=== PATIENT | male | born 1950 | race Two or more races ===

== ENCOUNTER → 2018-06-02 | Outpatient (CLI) | payer MEDICARE, MEDICAID | END | disposition home or self-care (01) | LOC: Rad HDHVI 11:02 | PROVIDERS: ATTEND Internal Medicine Cardiovascular Disease | DX: I10 Essential (primary) hypertension (principal); R00.2 Palpitations; R06.02 Shortness of breath | CPT/HCPCS: 93306 ==

== ENCOUNTER → 2018-06-07 | Outpatient (CLI) | payer MEDICARE, MEDICAID ==
[~2018-06-07] VITALS: Ht 170.2 cm; Wt 127.0 kg
[~2018-06-07] MED LIST: ADENOSINE 107 MG in GIVE UN-DILUTED 0 ML IV ONE; ADENOSINE 90 MG/30 ML INJ IV ONE
[2018-06-07 15:59] LABS: Albumin 3.3 g/dL (3.4-5.0); Calcium 8.6 mg/dL (8.5-10.1); Potassium 3.7 mmol/L (3.5-5.1)
[2018-06-07 16:02] LABS: Bilirubin, Total 0.5 mg/dL (0.2-1.0); Total Protein 7.5 g/dL (6.4-8.2)
[2018-06-07 16:38] LABS: Basophils # (auto) 0.1 uL; Basophils % (auto) 0.7 % (0.0-2.0); Eosinophils # (auto) 0.2 uL; Eosinophils % (auto) 1.9 % (0.0-7.0); Hematocrit 47.6 % (41.0-53.0); Hemoglobin 15.9 g/dL (13.5-17.5); Lymphocytes % (auto) 23.9 % (10.0-50.0); Mean Corpuscular Hemoglobin 27.7 pg (28.0-32.0); Mean Corpuscular Hgb Conc. 33.4 g/dL (32.0-36.0); Monocytes # (auto) 0.7 uL; Monocytes % (auto) 7.8 % (0.0-12.0); Neutrophils # (auto) 5.5 uL; Neutrophils % (auto) 65.7 % (37.0-80.0); Nucleated Red Blood Cells % 1.2 %; Platelet Count (auto) 268 10^3/uL (140-450); Red Blood Cells 5.73 10^6/uL (4.5-5.90); Red Cell Distribution Width 14.4 % (11.8-14.3); White Blood Cell 8.4 10^3/uL (4.4-10.8)
== END | disposition home or self-care (01) ==
LOC: Rad HDHVI 09:52
PROVIDERS: ATTEND Internal Medicine Cardiovascular Disease
DX: D64.9 Anemia, unspecified (principal); E03.9 Hypothyroidism, unspecified; I10 Essential (primary) hypertension; E11.65 Type 2 diabetes mellitus with hyperglycemia
CPT/HCPCS: 36415; 78452; 80053; 83036; 84439; 84443; 85025; 93005; 96374; 96375; A9500; J0153

== ENCOUNTER → 2018-06-28 | Outpatient (CLI) | payer MEDICARE, MEDICAID ==
[2018-06-28 11:50] VITALS: BP 148/84
[2018-06-28 12:20] VITALS: BP 150/86
[2018-06-28 16:25] LABS: Basophils # (auto) 0 uL; Basophils % (auto) 0.5 % (0.0-2.0); Eosinophils # (auto) 0.1 uL; Eosinophils % (auto) 1.4 % (0.0-7.0); Hemoglobin 16.2 g/dL (13.5-17.5); Lymphocytes # (auto) 1.4 uL; Lymphocytes % (auto) 19.2 % (10.0-50.0); Mean Corpuscular Hemoglobin 28.8 pg (28.0-32.0); Mean Corpuscular Hgb Conc. 34.5 g/dL (32.0-36.0); Mean Corpuscular Volume 83.4 fL (80.0-100.0); Monocytes # (auto) 0.5 uL; Monocytes % (auto) 7.6 % (0.0-12.0); Neutrophils # (auto) 5.1 uL; Neutrophils % (auto) 71.3 % (37.0-80.0); Nucleated Red Blood Cells % 0.4 %; Platelet Count (auto) 286 10^3/uL (140-450); Red Blood Cells 5.64 10^6/uL (4.5-5.90); Red Cell Distribution Width 14.9 % (11.8-14.3); White Blood Cell 7.1 10^3/uL (4.4-10.8)
[2018-06-28 16:39] LABS: INR 0.92 (0.9-1.15); Partial Thromboplastin Time 29.8 sec (23.78-33.04); Prothrombin Time 9.9 sec (9.27-12.13)
[2018-06-28 16:40] LABS: BUN/Creatinine Ratio 16.6; Potassium 3.9 mmol/L (3.5-5.1)
== END | disposition home or self-care (01) ==
LOC: Rad HDHVI 11:49
PROVIDERS: ATTEND Internal Medicine Cardiovascular Disease
DX: Z01.818 Encounter for other preprocedural examination (principal); D64.9 Anemia, unspecified; R79.1 Abnormal coagulation profile; I10 Essential (primary) hypertension; R94.31 Abnormal electrocardiogram [ECG] [EKG]
CPT/HCPCS: 36415; 80048; 85025; 85610; 85730; 93005; G0463

== ENCOUNTER 2018-07-01 10:27 | Day surgery (SDC) | payer MEDICARE, MEDICAID ==
[~2018-07-01] VITALS: Ht 170.2 cm; Wt 122.5 kg
[2018-07-01] MEDS ORDERED: HEPARIN IN NS 1000Units/500mL 0 ML ONE (10:53)
[2018-07-01] MEDS ORDERED: LIDOCAINE 2%HCL (LOCAL ANESTH.) INJ 20ML MDV ONE (10:53)
[2018-07-01] MEDS ORDERED: IOHEXOL 350 MG/ML 100ML IJ ONE (10:53)
[2018-07-01] MEDS ORDERED: MIDAZOLAM HCL 1MG/1ML-2 ML VIAL ONE (12:09)
[2018-07-01] MEDS ORDERED: fentaNYL CITRATE 100 MCG/2 ML VL ONE (12:09)
[2018-07-01] MEDS ORDERED: ANGIOMAX 250 MG VIAL IV ONE (12:09)
[2018-07-01] MEDS ORDERED: SODIUM CHL 0.9% 0 ML ONE (12:10)
[2018-07-01] MEDS ORDERED: AMLO5TAB13 PO (13:35)
[2018-07-01] MEDS ORDERED: ATOR20TA50 PO (13:36)
[2018-07-01] MEDS ORDERED: CETI1TAB36 PO (13:49)
[2018-07-01] MEDS ORDERED: LOSA-49 PO (13:55)
[2018-07-01] MEDS ORDERED: DICL50TA4 PO (13:55)
[2018-07-01] MEDS ORDERED: CHLO50TA PO (13:55)
[2018-07-01] MEDS ORDERED: ESCI10TA53 PO (13:55)
[2018-07-01] MEDS ORDERED: INSU75IN2 SC (13:55)
[2018-07-01] MEDS ORDERED: GABA100C9 PO (13:55)
[2018-07-01] MEDS ORDERED: OMEP20TA PO (13:55)
[2018-07-01] MEDS ORDERED: CLOPIDOGREL 300 MG TAB PO ONE (14:00)
== END 2018-07-01 15:10 | disposition home or self-care (01) ==
LOC: CATH 10:27
PROVIDERS: ATTEND Internal Medicine Cardiovascular Disease
DX: I25.10 Atherosclerotic heart disease of native coronary artery without angina pectoris (principal); R94.39 Abnormal result of other cardiovascular function study; I10 Essential (primary) hypertension; E11.9 Type 2 diabetes mellitus without complications; E66.9 Obesity, unspecified; J44.9 Chronic obstructive pulmonary disease, unspecified; E78.5 Hyperlipidemia, unspecified; Z95.5 Presence of coronary angioplasty implant and graft; Z82.49 Family history of ischemic heart disease and other diseases of the circulatory system
CPT/HCPCS: 93460; 99152; 99153; A6257; C1751; C1760; C1894; J1644; J2250; J3010; J7030; Q9967

== ENCOUNTER → 2018-08-02 | Outpatient (CLI) | payer MEDICARE, MEDICAID ==
[~2018-08-02] VITALS: Ht 170.2 cm; Wt 123.8 kg
[~2018-08-02] MED LIST changes: -ADENOSINE 107 MG in GIVE UN-DILUTED 0 ML IV ONE; -ADENOSINE 90 MG/30 ML INJ IV ONE; +AMLO5TAB13 PO; +ATOR20TA50 PO; +CETI1TAB36 PO; +CHLO50TA PO; +DICL50TA4 PO; +ESCI10TA53 PO; +GABA100C9 PO; +INSU75IN2 SC; +LOSA-49 PO; +OMEP20TA PO
[2018-08-02 11:10] VITALS: BP_SYST 146; BP_SYST 150; BP_DIAS 93; BP_DIAS 94
[2018-08-02 11:35] VITALS: BP 150/93
[2018-08-02 16:07] LABS: Basophils # (auto) 0 uL; Basophils % (auto) 0.6 % (0.0-2.0); Eosinophils # (auto) 0.2 uL; Eosinophils % (auto) 2.6 % (0.0-7.0); Hematocrit 45.7 % (41.0-53.0); Hemoglobin 15.3 g/dL (13.5-17.5); Lymphocytes # (auto) 1.3 uL; Lymphocytes % (auto) 17.8 % (10.0-50.0); Mean Corpuscular Hgb Conc. 33.4 g/dL (32.0-36.0); Mean Corpuscular Volume 83.9 fL (80.0-100.0); Monocytes # (auto) 0.5 uL; Monocytes % (auto) 6.8 % (0.0-12.0); Neutrophils # (auto) 5.1 uL; Neutrophils % (auto) 72.2 % (37.0-80.0); Nucleated Red Blood Cells % 1.1 %; Platelet Count (auto) 348 10^3/uL (140-450); Red Blood Cells 5.45 10^6/uL (4.5-5.90); Red Cell Distribution Width 14.9 % (11.8-14.3); White Blood Cell 7.1 10^3/uL (4.4-10.8)
[2018-08-02 16:11] LABS: BUN/Creatinine Ratio 15.8; Calcium 8.7 mg/dL (8.5-10.1); Potassium 4.1 mmol/L (3.5-5.1)
[2018-08-02 16:20] LABS: INR 0.94 (0.9-1.15); Partial Thromboplastin Time 29.9 sec (23.78-33.04); Prothrombin Time 10.1 sec (9.27-12.13)
== END | disposition home or self-care (01) ==
LOC: Rad HDHVI 10:55
PROVIDERS: ATTEND Internal Medicine Cardiovascular Disease
DX: Z01.818 Encounter for other preprocedural examination (principal); I70.0 Atherosclerosis of aorta; D64.9 Anemia, unspecified; R79.1 Abnormal coagulation profile; I11.0 Hypertensive heart disease with heart failure; I50.9 Heart failure, unspecified; I25.5 Ischemic cardiomyopathy; E11.9 Type 2 diabetes mellitus without complications; R94.31 Abnormal electrocardiogram [ECG] [EKG]
CPT/HCPCS: 36415; 71046; 80048; 85025; 85610; 85730; 93005; G0463

== ENCOUNTER → 2018-08-23 | Outpatient (CLI) | payer MEDICARE, MEDICAID ==
[~2018-08-23] MED LIST changes: -CETI1TAB36 PO; -CHLO50TA PO; +CHOL100079 OR; +CIPR-173 PO; +CLON0.5T PO; -DICL50TA4 PO
== END | disposition home or self-care (01) ==
LOC: Rad HDHVI 12:31
PROVIDERS: ATTEND Internal Medicine Cardiovascular Disease
DX: I35.0 Nonrheumatic aortic (valve) stenosis (principal); I25.5 Ischemic cardiomyopathy; I11.0 Hypertensive heart disease with heart failure; I50.23 Acute on chronic systolic (congestive) heart failure; Z98.61 Coronary angioplasty status
CPT/HCPCS: 93306

== ENCOUNTER → 2018-09-21 | Outpatient (CLI) | payer MEDICARE, MEDICAID ==
[~2018-09-21] VITALS: Ht 170.2 cm; Wt 123.8 kg
[~2018-09-21] MED LIST changes: +ADENOSINE 104 MG in GIVE UN-DILUTED 0 ML IV ONE; +ADENOSINE 90 MG/30 ML INJ IV ONE
== END | disposition home or self-care (01) ==
LOC: Rad HDHVI 13:18
PROVIDERS: ATTEND Internal Medicine Cardiovascular Disease
DX: I20.9 Angina pectoris, unspecified (principal); E11.9 Type 2 diabetes mellitus without complications; I11.0 Hypertensive heart disease with heart failure; I50.43 Acute on chronic combined systolic (congestive) and diastolic (congestive) heart failure
CPT/HCPCS: 78452; 93005; 96374; 96375; A9500; J0153

== ENCOUNTER → 2019-01-11 | Outpatient (CLI) | payer MEDICARE, MEDICAID ==
[~2019-01-11] MED LIST changes: -ADENOSINE 104 MG in GIVE UN-DILUTED 0 ML IV ONE; -ADENOSINE 90 MG/30 ML INJ IV ONE
== END | disposition home or self-care (01) ==
LOC: Rad HDHVI 13:45
PROVIDERS: ATTEND Internal Medicine Cardiovascular Disease
DX: I11.0 Hypertensive heart disease with heart failure (principal); I50.33 Acute on chronic diastolic (congestive) heart failure; I25.5 Ischemic cardiomyopathy; E11.9 Type 2 diabetes mellitus without complications
CPT/HCPCS: 93306

== ENCOUNTER → 2019-03-28 | Outpatient (CLI) | payer MEDICARE, MEDICAID ==
[~2019-03-28] MED LIST changes: +ALBUAER3 IN; -AMLO5TAB13 PO; +AMLO5TAB15 PO; +GABA300C10 PO; +LOSA-39 PO; -LOSA-49 PO; +MELO1TAB56 PO; +METO-169 PO; +POTA-220 PO; +TORS20TA20 PO
[2019-03-28 10:10] VITALS: BP 144/77
[2019-03-28 10:27] VITALS: BP 138/78
[2019-03-28 12:11] LABS: Urine Blood TRACE /uL (Negative); Urine Specific Gravity 1.015 (1.001-1.035)
[2019-03-28 12:22] LABS: Basophils # (auto) 0.1 uL; Basophils % (auto) 0.7 % (0.0-2.0); Eosinophils # (auto) 0.2 uL; Eosinophils % (auto) 2.3 % (0.0-7.0); Hematocrit 42.8 % (41.0-53.0); Hemoglobin 14.2 g/dL (13.5-17.5); Lymphocytes # (auto) 1.7 uL; Lymphocytes % (auto) 22.9 % (10.0-50.0); Mean Corpuscular Hemoglobin 29.1 pg (28.0-32.0); Mean Corpuscular Hgb Conc. 33.2 g/dL (32.0-36.0); Mean Corpuscular Volume 87.5 fL (80.0-100.0); Monocytes # (auto) 0.5 uL; Monocytes % (auto) 7.1 % (0.0-12.0); Neutrophils # (auto) 5.1 uL; Nucleated Red Blood Cells % 0.1 %; Platelet Count (auto) 296 10^3/uL (140-450); Red Blood Cells 4.89 10^6/uL (4.5-5.90); Red Cell Distribution Width 14.1 % (11.8-14.3); White Blood Cell 7.6 10^3/uL (4.4-10.8)
[2019-03-28 12:26] LABS: Potassium 4.3 mmol/L (3.5-5.1)
[2019-03-28 12:28] LABS: INR 0.93 (0.9-1.15); Partial Thromboplastin Time 23.9 sec (23.64-32.05)
[2019-03-28 12:36] LABS: Free T4 (Free Thyroxine) 1.3 ng/dL (0.89-1.76); Prostate Specific Antigen 0.1 ng/mL (0.0-4.0)
[2019-03-28 12:43] LABS: Albumin 3.7 g/dL (3.4-5.0); BUN/Creatinine Ratio 18.2; Bilirubin, Total 0.6 mg/dL (0.2-1.0); Calcium 8.8 mg/dL (8.5-10.1); Total Protein 8.3 g/dL (6.4-8.2)
== END | disposition home or self-care (01) ==
LOC: Rad HDHVI 09:38
PROVIDERS: ATTEND Internal Medicine Cardiovascular Disease
DX: Z01.812 Encounter for preprocedural laboratory examination (principal); I12.9 Hypertensive chronic kidney disease with stage 1 through stage 4 chronic kidney disease, or unspecified chronic kidney disease; E11.22 Type 2 diabetes mellitus with diabetic chronic kidney disease; N18.3 Chronic kidney disease, stage 3 (moderate); I70.0 Atherosclerosis of aorta; E78.5 Hyperlipidemia, unspecified; E03.9 Hypothyroidism, unspecified; C61 Malignant neoplasm of prostate; N39.0 Urinary tract infection, site not specified; D51.9 Vitamin B12 deficiency anemia, unspecified; D64.9 Anemia, unspecified; I25.10 Atherosclerotic heart disease of native coronary artery without angina pectoris; I25.5 Ischemic cardiomyopathy; R94.31 Abnormal electrocardiogram [ECG] [EKG]
CPT/HCPCS: 36415; 71046; 80053; 80061; 81003; 82306; 82607; 83036; 84153; 84403; 84439; 84443; 85025; 85610; 85730; 87086; 93005; G0463

== ENCOUNTER 2019-03-31 09:40 | Day surgery (SDC) | payer MEDICARE, MEDICAID ==
[~2019-03-31] VITALS: Ht 170.2 cm; Wt 131.1 kg
[~2019-03-31 09:40] MED LIST changes: -ALBUAER3 IN; -GABA300C10 PO; -MELO1TAB56 PO; -METO-169 PO; -POTA-220 PO; -TORS20TA20 PO
[2019-03-31] MEDS ORDERED: AMIODARONE HCL (50 MG/ ML) 3 ML VIAL IV ONE ×3 (09:41→14:14)
[2019-03-31] MEDS ORDERED: INSU75IN2 SC (10:48)
[2019-03-31] MEDS ORDERED: ALBUAER3 IN (10:48)
[2019-03-31] MEDS ORDERED: METO-169 PO (10:48)
[2019-03-31] MEDS ORDERED: MELO1TAB56 PO (10:48)
[2019-03-31] MEDS ORDERED: POTA-220 PO (10:48)
[2019-03-31] MEDS ORDERED: GABA300C10 PO (10:48)
[2019-03-31] MEDS ORDERED: TORS20TA20 PO (10:48)
[2019-03-31] MEDS ORDERED: IOHEXOL 350 MG/ML 100ML IJ ONE ×2 (10:57→11:40)
[2019-03-31] MEDS ORDERED: LIDOCAINE 2%HCL (LOCAL ANESTH.) INJ 20ML MDV ONE (10:57)
[2019-03-31] MEDS ORDERED: fentaNYL CITRATE 100 MCG/2 ML VL ONE (11:37)
[2019-03-31] MEDS ORDERED: ANGIOMAX 250 MG VIAL IV ONE (11:37)
[2019-03-31] MEDS ORDERED: SODIUM CHL 0.9% 50 ML ONE (11:38)
[2019-03-31] MEDS ORDERED: MIDAZOLAM HCL 1MG/1ML-2 ML VIAL ONE (11:38)
[2019-03-31] MEDS ORDERED: ATROPINE SULFATE 1 MG/1 ML VIAL ONE (11:58)
[2019-03-31] MEDS ORDERED: EPINEPHrine HCL 1 MG/10 ML SYRG ONE (11:59)
[2019-03-31] MEDS ORDERED: ASPirin 325 MG TAB ONE (12:13)
[2019-03-31] MEDS ORDERED: CLOPIDOGREL 300 MG TAB ONE (12:13)
[2019-03-31] MEDS ORDERED: ONDANSETRON HCL 4 MG/2 ML VIAL ONE (12:28)
[2019-03-31] MEDS ORDERED: NITROGLYCERIN 0.4 MG SL TAB SL PRN (12:45)
[2019-03-31] MEDS ORDERED: DEXTROSE (50%) 50ML SYRG IV PRN (12:45)
[2019-03-31] MEDS ORDERED: MORPHINE SULF INJ 2 MG/ML SYRINGE 1ML IV PRN (12:45)
[2019-03-31] MEDS ORDERED: DOPamine 1600MCG/ML D5W 250 ML IV ONE (12:57)
[2019-03-31] MEDS ORDERED: ALBUTEROL SULF 2.5 MG/0.5ML(0.5%) NEB SOLN HHN SCH (13:00)
[2019-03-31] MEDS ORDERED: METOCLOPRAMIDE HCL 5MG/ml INJ 2ml VIAL ONE (13:17)
[2019-03-31] MEDS ORDERED: NOREPINEPHRINE 8 MG/250ML KIT 250 ML IV ONE ×2 (14:13→14:29)
[2019-03-31] MEDS ORDERED: AMIODARONE HCL 0 MG IV ONE ×2 (14:15)
[2019-03-31] MEDS ORDERED: AMIODARONE HCL 900 MG in DEXTROSE 500 ML IV SCH ×2 (14:29→20:29)
[2019-03-31] MEDS ORDERED: AMIODARONE HCL 150 MG in D5W 5% 100 ML IV ONE (14:30)
[2019-03-31] MEDS ORDERED: ROCURONIUM 10MG/ML 10ML VIAL IV ONE (14:38)
[2019-03-31] MEDS ORDERED: ETOMIDATE (2MG/ML) 20ML VIAL IV ONE (14:38)
[2019-03-31] MEDS ORDERED: SUCCINYLCHOLINE CHLORIDE 20 MG/ML 10ML VIAL IV ONE (14:38)
[2019-03-31] MEDS ORDERED: MIDAZOLAM DRIP 50 mg/50mL 50 ML IV ONE (14:39)
[2019-03-31] MEDS ORDERED: EPINEPHrine HCL 250 ML IV ONE (14:50)
[2019-03-31] MEDS ORDERED: DEXTROSE (50%) 50ML SYRG IV ONE (15:00)
[2019-03-31] MEDS ORDERED: SODIUM BICARBONATE 8.4% INJ 50ML SYRINGE IV ONE (15:00)
[2019-03-31] MEDS ORDERED: ATROPINE SULF 1 MG/10ml SYR IV ONE (15:00)
[2019-03-31] MEDS ORDERED: EPINEPHrine HCL 1 MG/10 ML SYRG IV ONE (15:00)
[2019-03-31] MEDS ORDERED: MAGNESIUM SULF 50% 40 MEQ/10 ML VL IV ONE (15:00)
[2019-03-31] MEDS ORDERED: LIDOCAINE HCL 100 MG/5ML (2%) SYRG INJ IV ONE (15:00)
[2019-03-31 15:18] LABS: Hemoglobin 11.8 g/dL (13.5-17.5)
[2019-03-31 15:22] LABS: Hematocrit 38.4 % (41.0-53.0); Mean Corpuscular Hgb Conc. 30.8 g/dL (32.0-36.0); Mean Corpuscular Volume 94.2 fL (80.0-100.0); Platelet Count (auto) 248 10^3/uL (140-450); Red Blood Cells 4.08 10^6/uL (4.5-5.90); Red Cell Distribution Width 15.1 % (11.8-14.3); White Blood Cell 14.8 10^3/uL (4.4-10.8)
[2019-03-31 15:30] LABS: INR 1.29 (0.9-1.15); Partial Thromboplastin Time 55.1 sec (23.64-32.05)
[2019-03-31 15:32] LABS: Albumin 2.4 g/dL (3.4-5.0); Calcium 9.2 mg/dL (8.5-10.1)
--- NOTE | 2019-03-31 15:40 | NUR ---
[facility] office called to notify of patient passing. Information was given to dispatch and was told that we would be contacted by the [place] [facility].
[2019-03-31 15:41] LABS: BUN/Creatinine Ratio 17.1; Bilirubin, Total 0.6 mg/dL (0.2-1.0); Total Protein 5.5 g/dL (6.4-8.2)
[2019-03-31 15:44] LABS: Band Neutrophils % (manual) 0; Basophils % (manual) 0 (0.0-2.0); Blast Cells 0; Eosinophils % (manual) 0 (0-7); Metamyelocytes % 0; Myelocytes % 0; Promyelocytes % 0; Reactive Lymphocytes 0
[2019-03-31 15:45] LABS: Magnesium 4.3 mg/dL (1.6-2.6)
--- NOTE | 2019-03-31 15:48 | NUR ---
Called [facility] and spoke to Lisa. Received a case # [id number].
[2019-03-31] MEDS ORDERED: AMIODARONE HCL 900 MG IV ONE (15:52)
[2019-03-31] MEDS ORDERED: DEXTROSE IV ONE (15:52)
--- NOTE | 2019-03-31 16:32 | NUR ---
Called [employer] Miner Blasting's office and spoke to Amanda who said that the Gold Miner Blasting was out in the field and would call us as soon as possible.
[2019-03-31] MEDS ORDERED: ACCU-CHEK COMFORT CURVE STRIP VI SCH (17:00)
[2019-03-31] MEDS ORDERED: InsuLIN REG 1unit/0.01ml Soln (100units/ml) SC SCH ×2 (17:00→22:00)
[2019-03-31 17:42] LABS: Lymphocytes % (manual) 44 (10.0-50.0); Monocytes % (manual) 6 (0-12)
--- NOTE | 2019-03-31 18:36 | NUR ---
Received a call from the Tile Ditcher's office Yamila Saavedra who identified her self as the Tile Ditcher Java Performance Engineer. She asked me a few questions regarding the patient. Yamila said that the patient would not be a Tile Ditcher case, and that we could move the body to the morgue if need be. She did not give me a Case # at this time because a Tile Ditcher Clements would be calling back to speaking to the Fleet Maintenance Foreman after he returned to the office from the field.
[2019-03-31] MEDS ORDERED: TORSEMIDE 20 MG TAB PO SCH (22:00)
[2019-04-01] MEDS ORDERED: ATORVASTATIN 20 MG TAB PO SCH (10:00)
[2019-04-01] MEDS ORDERED: CLOPIDOGREL BISULFATE 75 MG TAB PO SCH (10:00)
[2019-04-01] MEDS ORDERED: METOPROLOL SUCCINATE XL 50 MG TAB PO SCH (10:00)
[2019-04-01] MEDS ORDERED: POTASSIUM CHL 20 Meq TABLET PO SCH (10:00)
[2019-04-01] MEDS ORDERED: LOSARTAN POTASSIUM 50 MG TAB PO SCH (10:00)
[2019-04-01] MEDS ORDERED: PANTOPRAZOLE 40 MG TAB PO SCH (10:00)
[2019-04-01] MEDS ORDERED: ASPirin 81 mg TAB PO SCH (10:00)
== END 2019-03-31 15:17 | disposition home or self-care (01) ==
LOC: CATH 09:40
PROVIDERS: ATTEND Internal Medicine Cardiovascular Disease
DX: I25.10 Atherosclerotic heart disease of native coronary artery without angina pectoris (principal); E11.40 Type 2 diabetes mellitus with diabetic neuropathy, unspecified; E11.21 Type 2 diabetes mellitus with diabetic nephropathy; E11.319 Type 2 diabetes mellitus with unspecified diabetic retinopathy without macular edema; E66.8 Other obesity; I10 Essential (primary) hypertension; E78.5 Hyperlipidemia, unspecified; I73.9 Peripheral vascular disease, unspecified; I25.2 Old myocardial infarction; Z68.42 Body mass index [BMI] 45.0-49.9, adult; Z79.4 Long term (current) use of insulin; Z79.84 Long term (current) use of oral hypoglycemic drugs; Z95.818 Presence of other cardiac implants and grafts; Z98.890 Other specified postprocedural states
CPT/HCPCS: 36415; 36600; 80053; 82805; 82962; 83735; 85007; 85027; 85610; 85730; 93458; C1725; C1726; C1760; C1769; C1874; C1887; C1894; C9600; J0171; J0282; J0330; J0583; J1265; J1644; J1815; J2250; J2405; J2765; J3010; J3475; J7030; J7042; J7060; Q9967; 92933; 99152; 99153; J0461